=== PATIENT | female | born 1965 | race African-American/Black ===

== ENCOUNTER → 2017-08-02 | Outpatient (CLI) | payer OTHER ==
[~2017-08-02] MED LIST: ACCUNEB SO1.25 MG/1 INH; ALLEGRA ALLERG180 MG PO; CELEBREX 200 M200 M1 PO; CYMBALTA60 MG PO; FLEXERIL PO; PREVACID15 MG PO; TOPAMAX 100 MG100 MG PO; VICODIN 5-3001 EACH PO
== END ==
LOC: RAD 09:04
DX: M47.894 Other spondylosis, thoracic region (principal); M41.85 Other forms of scoliosis, thoracolumbar region

== ENCOUNTER → 2017-10-01 | Outpatient (CLI) | payer OTHER | LOC: RAD 11:37 | DX: M47.814 Spondylosis without myelopathy or radiculopathy, thoracic region (principal) ==